=== PATIENT | female | born 1995 | race Caucasian/White ===

== ENCOUNTER 2017-03-03 20:44 | Inpatient (IN) | payer OTHER ==
[~2017-03-03] VITALS: Ht 162.6 cm; Wt 103.0 kg
[2017-03-03] MEDS ORDERED: Lactated Ringer's 1,000 ML IV PRN (23:29)
[2017-03-03] MEDS ORDERED: Oxytocin 30 Units/500 mL LR 30 UNITS in IV Premix 1 EACH IV PRN (23:30)
[2017-03-03] MEDS ORDERED: Oxytocin 10 Unit/mL Inj IM PRN (23:30)
[2017-03-03] MEDS ORDERED: Sodium Chloride LOK Flush 10 mL Syringe IVFLUSH PRN (23:30)
[2017-03-03] MEDS ORDERED: Ondansetron 2 mg/mL 2 mL Inj IVPUSH PRN (23:30)
[2017-03-03] MEDS ORDERED: Carboprost 250 mCg/mL Inj IM PRN (23:30)
[2017-03-03] MEDS ORDERED: Penicillin G K Inj 5,000,000 UNITS in Dextrose 5% Minibag Plus 100 ML IV ONE (23:30)
[2017-03-03] MEDS ORDERED: Methylergonovine 0.2 mg/mL Inj IM PRN (23:30)
[2017-03-03] MEDS ORDERED: fentaNYL-PF 50 mCg/mL 2 mL Inj IVPUSH PRN (23:30)
[2017-03-03] MEDS ORDERED: Hemorrhage Kit, Post Partum XX ONE (23:30)
[2017-03-03] MEDS ORDERED: PREN1TAB87 PO (23:34)
[2017-03-03] MEDS ORDERED: BUDE90AE IH (23:34)
[2017-03-03 23:55] LABS: Mean Corpuscular Hemoglobin 29.1 pg (27.0-35.0); Mean Corpuscular Volume 86.6 fL (81-100)
--- NOTE | 2017-03-04 02:04 | HP ---
[address] [address] HISTORY AND PHYSICAL PATIENT: BRYAN ALICEA : 1995 MR#: [id number] ADMIT: 03/03/2017 JOB ID: [id number] HISTORY OF PRESENT ILLNESS: This is a 21-year-old female. She is 1, para 0, at 39 weeks plus 5 days. She presented to [facility] for contractions. She was 1 cm dilated in the office on the , and yesterday she was sent for examination, and today her cervix changed to 3.5 cm and was 80% effaced, -1 station. She is clarice every 3 minutes. Her tracing was category 1. This patient had routine care at [facility]. During her care, it was noted that her blood type is O positive, varicella immune, rubella immune, RPR negative, HBsAg negative, HIV negative. Her GBS is noted to be positive and her 1 hour glucose screening test, 84. ALLERGIES: She declined allergies to medications. PAST MEDICAL HISTORY: She has history of asthma. She uses albuterol once every 3-4 months. She has history of depression. She is not taking medication, and she has normal mood in . PAST SURGICAL HISTORY: Declined. OBSTETRICAL HISTORY: This is her first . GYNECOLOGIC HISTORY: Not significant. SOCIAL HISTORY: She is not smoking. Declined taking alcohol and declined drug usage. PHYSICAL EXAMINATION: She is afebrile. Cardiac: RR, no murmur. Pulmonary: Bilaterally clear. Abdomen: Soft, nontender. Uterus well relaxed between contractions. Clarice every 3 minutes. heart tracing category 1. Cervical examination, 3.5 cm dilated, 80% effaced, -1, and with bulging membrane. This was reported by triage nurse. ASSESSMENT AND PLAN: A 21-year-old female, 1, para 0, at 39 weeks plus 5 days, early labor, feeling significant pain from contractions. Group B Streptococcus positive. 1. We will admit her to [facility] for pain management at this time. 2. We will start her on penicillin for GBS positive status. 3. Expect vaginal delivery. 4. We will monitor labor progress at this time.
[2017-03-04] MEDS ORDERED: EPHEDrine Sulfate 50 mg/mL Inj IVPUSH PRN (02:05)
[2017-03-04] MEDS ORDERED: Ondansetron 2 mg/mL 2 mL Inj IVPUSH PRN (02:05)
[2017-03-04] MEDS ORDERED: Lactated Ringer's 1,000 ML IV SCH ×3 (02:05→03:55)
[2017-03-04] MEDS ORDERED: Lactated Ringer's 500 ML IV ONE (02:05)
[2017-03-04] MEDS ORDERED: fentaNYL 2 mCg/mL-Bupiv 0.125% 100 ML EPIDURAL SCH (02:05)
[2017-03-04] MEDS ORDERED: Atropine 1 mg/10 mL (Code) Syringe IVPUSH PRN (02:05)
--- NOTE | 2017-03-04 02:59 | PCM.HPANE ---
Patient Data Surgeon Admitting Provider:Negin Mercado MD Attending Provider:Negin Mercado MD Primary Care Physician:Santiago Other Provider:Mackenzie Daniels Anesthesia Reason for Visit Term Labor Check TERM LABOR CHECK Ht/WT & BMI Body Mass Index Allergies Coded Allergies: No Known Allergies (Unverified , 03/03/17) Past Anesthesia History Anesthesia History: Denies:: Abnormal Airway, Anesthesia Reactions, Difficult Intubation, Fam Anesthesia Reaction, Fam Malignant Hypertherm, Malignant Hyperthermia Medications Reported Medications Budesonide (Pulmicort Flexhaler)1 Puff/90 Mcg Aerp1 Puff IH ASDIRECTED #1 INHALER Ref 0 03/03/17 Vit W-Ca,Fe,FA(<1 mg) ( Vitamins)1 Each Tablet1 Each PO DAILY 03/03/17 History History of ENT Problems?: No HEENT History: Denies:: Abnormal Airway Cataracts Difficult Intubation Dysphagia Glaucoma Hearing Problem Sinus Problem TMJ Denture Type: None Teeth Condition: Within Normal Limits Hx of Heart Problems?: No Cardiovascular History: Denies:: AICD Abdominal Aortic Aneurism Atrial Fibrillation Cardiac Surgery Chest Pain Congestive Heart Failure Coronary Artery Disease Edema Heart Murmur Hypertension Irregular Heartbeat Pacemaker Peripheral Vascular Rheumatic Fever Thrombophlebitis Valvular Heart Disease Hx of Respiratory Problem?: No Respiratory History: Denies:: Asthma COPD Chest Surgery Cough Dyspnea Emphysema Hemoptysis Oxygen Administration Pneumonia Pulmonary Embolism Tuberculosis Use of C-PAP Machine Use of Inhalers / NEBS Hx Neurologic Problems?: No Hx of GI Problems?: No Hx of Problems?: No Genitourinary History: Denies:: HX of Hemodialysis Kidney Stones Urinary Tract Infection Female Hx: Positive for:: Currently Hx Musculoskeletal Problems?: No Hx Surgeries?: No Stop/Bang Risk Assessment Category Category 1A: Patient has history of documented sleep apnea, and HAS NOT received any narcotic, sedative or anesthesia administration during this stay. Category 1B: Patient has history of documented sleep apnea, and HAS received any narcotic , sedative or anesthesia administration during this stay Category 2: Patient has SUSPECTED Obstructive Sleep Apnea, and HAS received any narcotic , sedative or anesthesia administration during this stay. Category 3: Patient has SUSPECTED Obstructive Sleep Apnea and HAS NOT received narcotic, sedative or anesthesia administration during this stay. Category 4: Outpatient in Procedural Areas with known sleep apnea or who screen positive for High Risk via the STOP/BANG questionnaire. Exam Exam General Appearance: Alert, Oriented X3, Cooperative, No Acute Distress HEENT/AIRWAY: MP 3 Lungs: Clear to Auscultation Heart: Exam Unremarkable Meds/Labs/Diagnostics Admission Meds Current Medications Penicillin G Potassium/ Dextrose/Water (Pfizerpen Inj/ D5W Minibag Plus) 100 ml @ 240 mls/hr ONCE ONCE IV Last administered on 03/04/17t 00:19; Start at 23:30; Stop 03/03/17 at 23:54; Status DC Labs Test 03/03/17 23:40 03/04/17 00:14 White Blood Count 16.9th/mm3 (3.8-10.1) Red Blood Count 4.61mil/mm3 (3.90-5.20) Hemoglobin 13.4g/dL (12.0-15.6) Hematocrit 39.9% (35.0-46.0) Mean Corpuscular Volume 86.6fL (81-100) Mean Corpuscular Hemoglobin 29.1pg (27.0-35.0) Mean Corpuscular Hemoglobin Concent 33.6% (32.0-37.0) Red Cell Distribution Width 13.9% (12.3-15.4) Platelet Count 366bil/L (150-400) Urine Opiates Screen Negative Urine Methadone Screen Negative Urine Barbiturates Screen Negative Urine Amphetamines Screen Negative Urine Benzodiazepines Screen Negative Urine Cocaine Metabolite Screen Negative Urine Cannabinoids Screen Negative Plan Impression Patient chart reviewed, patient interviewed and anesthestic plan with risks, benefits, and alternatives discussed, and informed consent obtained. ASA Physical Status: ASA2 Mod Systemic Disease Anesthetic Plan: Epidural Bene/Risks/Altern/Consents: Yes HP Complete Prior to Induction: Yes Kirk Wing MD Mar 04, 2017 02:05
[2017-03-04] MEDS ORDERED: Hemorrhage Kit, Post Partum XX ONE ×2 (03:50→03:55)
[2017-03-04] MEDS ORDERED: Oxytocin 10 Unit/mL Inj IM PRN ×2 (03:50→03:55)
[2017-03-04] MEDS ORDERED: LANOlin HPA 7 Gm Ointment TOPICAL PRN ×2 (03:50→03:55)
[2017-03-04] MEDS ORDERED: Benzocaine (Dermoplast) 20% 60 Gm Spray TOPICAL PRN ×2 (03:50→03:55)
[2017-03-04] MEDS ORDERED: Methylergonovine 0.2 mg/mL Inj IM PRN ×2 (03:50→03:55)
[2017-03-04] MEDS ORDERED: Witch Hazel-Glycerin Pads TOPICAL PRN ×2 (03:50→03:55)
[2017-03-04] MEDS ORDERED: Oxytocin 30 Units/500 mL LR 30 UNITS in IV Premix 1 EACH IV PRN ×2 (03:50→03:55)
[2017-03-04] MEDS ORDERED: Carboprost 250 mCg/mL Inj IM PRN ×2 (03:50→03:55)
[2017-03-04] MEDS ORDERED: Penicillin G K Inj 3,000,000 UNITS in IV Premix 1 EACH IV SCH (04:30)
--- NOTE | 2017-03-04 07:12 | OP ---
[address] [address] OPERATIVE REPORT PATIENT: BRYAN ALICEA : 1995 MR#: [id number] ADMIT: 03/03/2017 JOB ID: [id number] DATE OF SURGERY: 03/04/2017 SURGEON: Negin Mercado MD PREOPERATIVE DIAGNOSIS(ES): POSTOPERATIVE DIAGNOSIS(ES): This is a 21-year-old female, 1, para 1, now presents to [facility] for labor. She was admitted for labor and her labor progressed from 3 cm dilation to 6, and she got epidural for pain management. Then her labored continued to progress quickly to 8 cm dilation and patient complaining of pushing sensation. She was examined and noticed she is fully dilated at +1 station. At this time, it was noticed that she has a category 2 tracing with baseline at 140s with multiple late deceleration. IV bolus was given. The patient was placed on the left side position and oxygen and IV bolus given. The patient's heart tracing gradually improved to category 1. At this time, patient allowed to start to push. There was descent of head with pushing, and she had a good effort to push. The infant was delivered at BLANCHE position and shoulder and chest delivered without difficulty. The infant was placed on mother's chest and noticed to have good tone and spontaneous crying. Delayed cord clamping was performed 1 minute after delivery, then regular cord blood collected. The placenta delivered spontaneously, examined completely and with three-vessel cord. The uterus was massaged, Pitocin started. The uterus was well contracted. The perineum examined with no laceration. EBL during the delivery was 100 cc. score was 8 and 9. The weight was not available at dictation. All instrument, needles, laps, and gauzes counted correct twice.
[2017-03-04] MEDS ORDERED: Sodium Chloride LOK Flush 10 mL Syringe IVFLUSH SCH (08:30)
[2017-03-05 06:48] LABS: Mean Corpuscular Hemoglobin 29.5 pg (27.0-35.0); Mean Corpuscular Volume 89.2 fL (81-100)
--- NOTE | 2017-03-05 18:49 | PROG NOTE ---
[address] [address] PROGRESS NOTE PATIENT: BRYAN ALICEA : 1995 MR#: [id number] ADMIT: 03/03/2017 JOB ID: [id number] DATE: 03/05/2017 SUBJECTIVE: She states she is doing well this morning. She is day one from a spontaneous vaginal delivery. Her pain is well controlled. She is tolerating a regular diet, voiding and ambulating well on her own. She is pumping and struggling with latch issues with her baby. Additionally, her child has had issues with blood sugar control and regulation. Her mood is okay today. She does feel like she would benefit from a social work consultation. She states that her bleeding is minimal, and she denies any headaches, vision changes or right upper quadrant pain. PHYSICAL EXAMINATION: Objectively, she is afebrile. Her vital signs were stable. However, she does have mildly elevated blood pressures anywhere from the 120s up to the 140s/50s to 90s. In general, she is awake, alert, oriented. She is in no acute distress. Heart shows regular rate and rhythm. Her lungs are clear to auscultation bilaterally. Abdomen is soft, appropriately tender, it is nondistended. Her extremities show trace lower extremity edema. No calf tenderness. LABORATORY DATA: Collected this morning shows that her white count is 12.8, down from 16.9 predelivery. Her hemoglobins 11.7, and her platelets are 259. ASSESSMENT/PLAN: This is a 21-year-old, G1 now P-1-0-0-1 female who is day number one following spontaneous vaginal delivery. was complicated by poor social situation with depression as well as teen and group B strep positive status. Plan: She is doing well at this time, however, she is continuing to struggle with infant latch issues and her and is having some blood sugar regulation problems. At this point in time, her mood is stable. I think she would benefit from social work consult and this was ordered today. Her blood pressure is mildly elevated but in a nonsevere range, and we will continue to monitor this. She will be observed until day number two at which point I anticipate she will be stable for discharge. [facility]
--- NOTE | 2017-03-06 08:10 | PCM.DIOB ---
Obstetrical Disch Instruction Date of Service: Mar 06, 2017 Dates of Hospitalization Date of Hospital Admission Mar 03, 2017 at 23:23 Providers Admitting Physician: Negin Mercado MD Primary Care Physician: Santiago Attending Physician: Negin Mercado MD Discharge Diagnosis Discharge Diagnosis spontaneous vaginal delivery Problems: Diet Discharge Diet: No restrictions Activity Discharge Activity-General: Pelvic Rest for 6 weeks, Try not to overdue, Balance rest and activity, No lifting >10 pounds for 4-6 weeks Dressing and Incisional Care Hygiene: May shower, NO bathtub, hot tub or whirlpool, Perineal care, Sitz bath , Dermoplast spray, Witch Brigette pads Additional Instructions Discharge Instructions Colase 100 mg twice daily for constipation Ibuprofen 600 mg for pain every 6-8 hours Hydrocodone 5-325 1-2 tabs farzana 4-6 hours for break through pain Follow up in clinic in 2-4 weeks Seek emergency medical care if you have depression, thoughts of self harms, thoughts of harm to others Follow Up Plan Follow Up Plan see above Call your provider for: Fever or Chills, Shortness of breath, Heavy vaginal bleeding, Heavy bleeding, Epigastric pain, Excessive constipation, Vaginal discomfort, Red painful breasts FORTINO HEAD DO Mar 06, 2017 08:10
[2017-03-06] MEDS ORDERED: TUCPAD TOPICAL (08:12)
[2017-03-06] MEDS ORDERED: IBUP800T28 PO (08:12)
[2017-03-06] MEDS ORDERED: DOCU-41 PO (08:12)
[2017-03-06] MEDS ORDERED: Lanolin TOPICAL (08:12)
[2017-03-06] MEDS ORDERED: Benzocaine TOPICAL (08:12)
[2017-03-06] MEDS ORDERED: HYDR-4003 PO (08:13)
--- NOTE | 2017-03-06 08:43 | NUR ---
Family Assessment Date/time: 03/06/2017 MOB and FOB: MOB is Janie Hicks, FOB is Kye Baby: Mello Cool Reason for SW consult: MD order per MOB request Current living situation: MOB lives in [place] in a mother in law suite on her parents property. Previous children/in whos care/CPS involvement: None. Substance abuse hx: Pt does admit to marijuana use during her (once a week during the first few months of ). MOB drug screen was negative. Baby Cord Stat is pending. Mental Health hx and current issues: Pt has a hx of struggling with depression. MOB states she was never officially diagnosed. MOB denies any symptoms during or at this time. MOB denies any SI or thoughts of harming herself or others at this time. MOB provided with Post Depression information and symptom face sheet. MOB was encourage to communicate with her provider or baby's odd shoe examiner if symptoms arise. MOB feels comfortable going to FOB or family for support if symptoms arise. Source of income/state assistance: Pt was working during her but put resigned two weeks prior to baby being born. MOB plans to stay at home with baby for the first few months. FOB helps MOB out financially and MOB parents provide housing and other supports. MOB involved in WIC and is knowledgeable about [facility] and other state support programs if needed. DV/abuse hx: Denies. MOB states she feels safe at home and with FOB. Supports: MOB parents (grandparents who adopted MOB as a child) are very supportive and retired so they are able to help MOB when needed. FOB is involved and supportive. Per MOB, FOB works and lives in [place] during the week and lives with MOB to help out on the weekends. Special healthcare needs/disabilities for baby: N/A Involvement/Referral to [facility]/community programs: MOB is involved with WIC. Other [facility] and community resource information provided. Other: MOB had consistent care within [facility]. MOB provided with local pediatricians who accept her insurance and she plans to call prior to D/C to arrange an appointment with a provider for baby. Assessment: MD does not identify any further concerns. RN does not identify any further concerns and states MOB is bonding well and appropriate with baby. Other family has also visited MOB and baby. Disposition/plan: MOB has Discharge orders. MOB is to discharge home today with baby, MOB parents to transport. MOB has a car seat and other supplies in place. MOB denies any other needs. No other discharge needs identified. MOB encouraged to ask for [employer] WORK[employer] if any other needs or questions arise. JUANITO Flores
[2017-03-06 12:18] VITALS: BP 130/74; PULSE 81; RESP 16
--- NOTE | 2017-03-06 16:11 | PCM.DC.OB ---
Obstetrical Discharge Summary Date of Service Mar 06, 2017 Date of hospital admission Mar 03, 2017 at 23:23 Date of Discharge: Mar 06, 2017 Providers Admitting Physician: Negin Mercado MD Primary Care Physician: Santiago Attending Physician: Negin Mercado MD Brief History and Physical: Patient is a 21 y.o. F 1, para 1, delivered by spontaneous vaginal delivery 03/05/17 at 39 weeks plus 5 days. She presented to [facility] for contractions. She was 1 cm dilated in the office on the , and yesterday she was sent for examination. Her tracing was category 1. This patient had routine care at [facility]. During her care, it was noted that her blood type is O positive, varicella immune, rubella immune, RPR negative, HBsAg negative, HIV negative. Her GBS is noted to be positive and her 1 hour glucose screening test, 84. PHYSICAL EXAMINATION: Gen: no acute distress afebrile. Cardiac: RRR, no murmur. +S1 +S2 Pulmonary: Bilaterally clear to auscultation Abdomen: Soft, nontender. Extremities: negative homans sign, trace edema b/l Neuro: Grossly intact Hospital Course: This is a 21-year-old female, 1, para 1, presented to [facility] for active labor 03/04/17. She was admitted for labor and her labor progressed from 3 cm dilation to 6, and she got epidural for pain management. Then her labored continued to progress quickly to 8 cm dilation. She had few episodes of category 2 tracing with baseline at 140s with multiple late deceleration. IV bolus was given. The patient was placed on the left side position and oxygen and IV bolus given. The patient's heart tracing gradually improved to category 1. With normalization of tracing patient allowed to start to push. Patient delivered healthy infant via spontaneous vaginal delivery 03/05/17 without complication. At time of discharge patient eating, drinking, ambulating without assistance, light lochia. ([Benzocaine]) 1 SPRAY/GM SPRAY 1 SPRAY TOPICAL PRN PRN PRN for perineal pain Prescribed by: FORTINO HEAD DO ([Lanolin]) 2 APPLIC/GM OINT 1 APPLIC TOPICAL PRN PRN PRN apply to nipples Prescribed by: FORTINO HEAD DO Budesonide (Pulmicort Flexhaler) 1 Puff/90 Mcg Aerp 1 PUFF IH ASDIRECTED ( Reported) Docusate Sodium (Colace) 100 Mg Capsule 100 MG PO DAILY Prescribed by: FORTINO HEAD DO Hydrocodone-Acetaminophen 5-325 mg (Hydrocodone-Acetaminophen 5-325 mg) 1 Each Tablet 1 TABLET PO Q4H PRN PRN For Pain Prescribed by: FORTINO HEAD DO Ibuprofen (Ibuprofen) 800 Mg Tablet 600 MG PO Q6H PRN PRN For Pain Prescribed by: FORTINO HEAD DO Vit W-Ca,Fe,FA(<1 mg) ( Vitamins) 1 Each Tablet 1 EACH PO DAILY (Reported) Witch Brigette/Glycerin (A.e.r Pads) 12 Towelette/Pkg Towelette 1 PAD TOPICAL PRN PRN PRN for perineal pain Prescribed by: FORTINO HEAD DO Discharge Medications: Colase 100 mg twice daily for constipation Ibuprofen 600 mg for pain every 6-8 hours Hydrocodone 5-325 1-2 tabs every 4-6 hours for break through pain Disposition discharge to home Follow-up plan Follow up in clinic in 2-4 weeks Discharge Diet: No restrictions Discharge Activity-General: Pelvic Rest for 6 weeks, Pelvic Rest, No lifting > 15 pounds for 2 weeks Patient instructions Colase 100 mg twice daily for constipation Ibuprofen 600 mg for pain every 6-8 hours Hydrocodone 5-325 1-2 tabs farzana 4-6 hours for break through pain Follow up in clinic in 2-4 weeks Seek emergency medical care if you have depression, thoughts of self harms, thoughts of harm to others FORTINO HEAD DO Mar 06, 2017 16:10
== END 2017-03-06 13:53 | disposition home or self-care (01) | DRG 560 ==
LOC: FBCO 20:44 → FBC 23:23
PROVIDERS: ADMIT Obstetrics & Gynecology; ATTEND Obstetrics & Gynecology
PROC: 10E0XZZ Delivery of Products of Conception, External Approach (ICD-10-PCS; principal; 2017-03-04)
DX: O99.824 Streptococcus B carrier state complicating childbirth (principal); O76 Abnormality in fetal heart rate and rhythm complicating labor and delivery; Z3A.39 39 weeks gestation of pregnancy; Z37.0 Single live birth